=== PATIENT | male | born 1945 | race Caucasian/White ===

== ENCOUNTER 2016-08-05 09:49 | Outpatient (CLI) | payer OTHER ==
--- NOTE | 2016-08-05 11:35 | DIAGNOSTIC IMAGING REPORT ---
PROCEDURE: US CHEST INDICATION: SOFT TISSUE MASS TECHNIQUE: Borges scale and color Doppler sonographic images of the right anterior lower chest were obtained COMPARISON: CT chest 09/25/2013 FINDINGS: A fairly well-circumscribed, horizontally oriented, ovoid mass measuring 3.6 x 2.1 x 1.8 cm corresponds to the anterior chest wall palpable abnormality. Color Doppler imaging demonstrates trace internal vascularity. Internal echogenicity similar to surrounding subcutaneous fat. There are no cystic spaces. No suspicious posterior shadowing or infiltration of underlying tissue. IMPRESSION: 1. Fairly well-circumscribed 3.6 cm lipoma corresponds to the anterior right chest wall palpable abnormality.
== END 2016-08-05 23:00 ==
LOC: US SRH 09:49
DX: D17.79 Benign lipomatous neoplasm of other sites (principal)